=== PATIENT | male | born 1960 | race Caucasian/White ===

== ENCOUNTER 2016-04-18 13:59 | Day surgery (SDC) | payer OTHER ==
[2016-04-15 16:03] VITALS: BMI 30.0
[~2016-04-18] VITALS: Ht 175.3 cm; Wt 90.0 kg
[2016-04-18] VITALS (17 sets, daily range): BP systolic 102–130; BP diastolic 58–92; PULSE 0–107; RESP 15–32; Ht 175.3 cm; Wt 90.0 kg
[2016-04-18] MEDS ORDERED: POVIDONE IODINE 10% 28.4 GM OINT ONE (15:09)
[2016-04-18] MEDS ORDERED: POLYMYXIN/BACITRACIN 1L IRRIG ONE (15:12)
[2016-04-18] MEDS ORDERED: FENTAnyl 50 MCG/ML VIAL ONE (15:27)
[2016-04-18] MEDS ORDERED: ROPIVACAINE 0.5 % 30 ML VIAL ONE (15:27)
[2016-04-18] MEDS ORDERED: LIDOCAINE 100 MG SYRINGE ONE (18:07)
[2016-04-18] MEDS ORDERED: SUCCINYLCHOLINE CHLORIDE 100 MG/5 ML SYG IV ONE (18:07)
[2016-04-18] MEDS ORDERED: GLYCOPYRROLATE 0.4 MG INJ ONE (18:07)
[2016-04-18] MEDS ORDERED: PROPOFOL 40 ML ONE (18:07)
[2016-04-18] MEDS ORDERED: NEOSTIGMINE 3 MG/3 ML SYRINGE ONE (18:07)
[2016-04-18] MEDS ORDERED: CEFAZOLIN 1 GM INJ ONE (18:07)
[2016-04-18] MEDS ORDERED: ROCURONIUM 50 MG INJ ONE (18:07)
[2016-04-18] MEDS ORDERED: FENTAnyl 50 MCG/ML VIAL IV PRN ×2 (18:30)
[2016-04-18] MEDS ORDERED: ONDANSETRON 4 MG INJ IV PRN (18:30)
[2016-04-18] MEDS ORDERED: DIPHENHYDRAMINE 50 MG INJ IV PRN (18:30)
[2016-04-18] MEDS ORDERED: METOCLOPRAMIDE 10 MG INJ IV PRN (18:30)
[2016-04-18] MEDS ORDERED: MEPERIDINE 25 MG INJ IV PRN (18:30)
[2016-04-18] MEDS ORDERED: HYDROmorphONE (0.2 MG/ML) 10ML SYG IV PRN ×3 (18:30)
--- NOTE | 2016-04-18 19:05 | OPR ---
Date/Time of Note Date/Time of Note DATE: 04/18/16 TIME: 18:46 Operative Report Procedure Date: Apr 18, 2016 Preoperative Diagnosis 1.left second metatarsophalangeal joint plantar plate rupture 2.left second toe hammertoe Postoperative Diagnosis 1.left second metatarsophalangeal joint plantar plate rupture 2.left second toe hammertoe Operation Performed 1.left second metatarsophalangeal joint plantar plate repair 2.left second toe proximal interphalangeal joint arthrodesis 3.left second extensor digitorum brevis tenotomy 4. Left second extensor digitorum longus tendon lengthening 5.left second metatarsal Purnima shortening osteotomy Surgeon: INOCENTE MOLINA MD Senior Linux Administrator: TENNILLE MOLINA MD Anesthesia: general, other (popliteal) Anesthesiologist: GENARO HOLMAN Tourniquet Time: 100 minutes at 250 mmHg Estimated Blood Loss: minimal Specimens None Complications: None Pt Condition Post Procedure: stable Disposition: PACU Indications Patient is a 56-year-old gentleman who is an active runner and actually with ongoing left second metatarsophalangeal joint pain at the base of the second metatarsophalangeal joint as well as pain over the dorsum of the second PIP joint. MRI was performed and shows subtotal rupture of the plantar plate. Given the ongoing symptoms and patient's desire to return to athletics and address his pain we will perform the surgery as indicated. Risk note: Patient was when the risks and benefits of surgery the patient's sleetmute language including not limited to infection, bleeding, possible loss of limb and life, possible need for future surgery, risk of injury to blood vessels, nerves, heel weightbearing ligaments or tendons patient acknowledged these risks by signing the surgical consent form. Procedure Description Patient was marked in the preoperative holding area and then brought back into the operative theater and placed supine operative table. Patient was given regional block anesthesia and preoperative antibiotics. Patient was placed a non -sterile tourniquet on the operative extremity. Patient was then prepped and draped in the normal sterile fashion. A timeout was taken and all parties in the room agreed it was a correct patient, extremity and procedure. Esmarch was brought to 250 mmHg. A dorsal longitudinal incision was centered over the second MTP joint and dissection was carried down to the extensor apparatus with extensive digitorum longus was Z lengthened and the brevis was tenotomized. Incision was taken further down to the metatarsal phalangeal joint and the synovitis was seen and debrided. The collateral ligaments were released off the base of proximal phalanx but left intact to the metatarsal head. A McGlamry elevator was then used to strip and plantarly released the proximal plate. A Purnima osteotomy was performed and the metatarsal head pusher translated the capital fragment proximally about 7 mm. The small joint distractor was then used to gain access to the plantar plate and the plantar plate was shown to be ruptured and was firmly debrided. the plantar edge of the proximal phalanx was roughened up with a running drawer to prepare the surface for reattachment of the plantar plate. We then prepared fixation of the plantar plate using a mini scorpion a #0 FiberWire was then passed at both medial and lateral aspect of the plantar plate and then bone tunnels were made over the proximal phalanx and the sutures were retrieved through the bone tunnels and a cross-like fashion. The K wires were removed and the Purnima osteotomy was moved to an anatomic position slightly shortened approximately 3 mm and fixed with 2 snap off quickfix screws. Attention was then turned to the proximal interphalangeal joint and incision was brought down and collateral ligaments were released. The proximal phalanx joint and middle phalanx joint edges were taken back with a sagittal saw and then using the Arthrex retro-fusion screw in the typical fashion the joint was compressed. Under fluoroscopy, guidance the joint was shown to be well reduced and compressed. And the second metatarsal was shown to be slightly shortened from the Purnima osteotomy with a nice contour remaining to the metatarsals. All wounds were irrigated thoroughly at this point under the toe held in 30 of plantar flexion and in Metatarsal articular surface well reduced the sutures were then tied over the cortical bridge between the 2 drill holes thereby advancing the plantar plate under the proximal phalanx base. Wound was further irrigated and the tensor digitorum longus was then repaired using a 6-0 nylon. And the extensor tan and capsule were repaired with 5-0 undyed Vicryl. The wound was irrigated thoroughly and the skin was closed with a 5-0 nylon in a interrupted vertical mattress fashion. The wound was then dressed with Xeroform Betadine ointment and then placed in a gauze and tape compressive dressing. Patient was placed into a hard sole shoe. And patient can begin ambulation with heel weightbearing for the next 6 weeks. Physical therapy can be initiated at 10 days following surgery and a 10 days manual exercises may commence with passive stretching and active rom with emphasis on increasing plantarflexion strength of the involved toe. Full forefoot weightbearing in athletic shoe will be allowed at 6 weeks and activity can progress is tolerated with aggressive walking at 8 weeks and jogging or running allowed by 12 weeks. Asst. note: An orthopedic surgeon was needed as an assistant chief engineer for this case due to the complexity of this case. The assistant chief engineer performed retraction and alignment of toe and saw with foot was being held into proper position and drilling also while the foot and ankle were being held in proper position. Without a orthopedic surgeon who is an expert in surgery assisting in this case the case to be a lot longer and more complex. Thus should be compensated accordingly INOCENTE MOLINA MD Apr 18, 2016 19:01
[2016-04-18] MEDS ORDERED: morphine 10 MG INJ IV PRN (19:30)
[2016-04-18] MEDS ORDERED: morphine 2 MG INJ IV PRN (19:30)
[2016-04-18] MEDS ORDERED: HYDROCODONE/APAP (10/325) TAB PO ONE (19:30)
--- NOTE | 2016-04-18 23:16 | RADRPT ---
PROCEDURE: XR Left Foot. CLINICAL INDICATION: Left foot pain. TECHNIQUE: Three views. Frontal, lateral, and oblique. COMPARISON: None. FINDINGS: There are postoperative changes with screws in the head of the second metatarsal and in the second m id and proximal phalanges. There is overlying soft tissue swelling. There is no other radiopaque foreign body in the soft tissues are otherwise normal. The articular surfaces are otherwise intact. There is no lytic or blastic lesion. IMPRESSION: 1. Postoperative changes of the second toe and distal second metatarsal. 2. No other abnormality. RPTAT: QQ .Gadiel Ann MD, Date Time Electronically viewed and signed by .Gadiel Ann MD, on 04/18/2016 23:16 .R/
--- NOTE | 2016-04-18 23:17 | RADRPT ---
PROCEDURE: Intraoperative imaging of the left foot with fluoroscopy. CLINICAL INDICATION: Left foot pain. Intraoperative. TECHNIQUE: Four images of the left foot were obtained in the operating room with an image intensif ier. No radiologist was in attendance. 10.6 seconds of fluoroscopy time was used. COMPARISON: No prior study is available for comparison. FINDINGS: Images demonstrate hardware in the second metatarsal distally and in the second toe. IMPRESSION: 1. Intraoperative imaging of the left foot. RPTAT: QQ .Gadiel Ann MD, MD Date Time Electronically viewed and signed by .Gadiel Ann MD, on 04/18/2016 23:16 .R/
== END 2016-04-18 20:42 | disposition home or self-care (01) ==
LOC: SDS 13:59 → EDSEX 13:59 → SDS 14:00
PROVIDERS: ATTEND Orthopaedic Surgery
DX: S93.692A Other sprain of left foot, initial encounter (principal); X58.XXXA Exposure to other specified factors, initial encounter; M20.42 Other hammer toe(s) (acquired), left foot; M65.9 Synovitis and tenosynovitis, unspecified
CPT/HCPCS: 28285; 28899; 73630; J0330; J0690; J2001; J2175; J2710; J2795; J3010